=== PATIENT | male | born 1940 ===

== ENCOUNTER 2017-08-08 11:28 | Observation (INO) | payer MEDICARE ==
[2017-08-08] MEDS ORDERED: Iohexol 240 (50 ml) PO STA (12:00)
--- NOTE | 2017-08-08 12:07 | C.PDOC ---
History Of Present Illness 76 y/o male presents to the ED accompanied by his son-in-law, for complaints of nausea and abdominal pain for 3 days. Patient saw his primary doctor and was referred to come to the ED to rule out cholecystitis. He denies any associated vomiting, bloody stools, dysuria, frequency, back pain, fever, or chills. Pain is described as diffuse and constant. Patient denies prior history of similar symptoms. He reports he did travel to [facility] 3 weeks ago and since then has been eating a lot of irish take-out and junk food. PMD: Indra Sierra GI: Dr. Chery Time Seen by Provider: 08/08/17 11:36 Chief Complaint (Nursing): Abdominal Pain History Per: Patient History/Exam Limitations: no limitations Onset/Duration Of Symptoms: Days (x3) Current Symptoms Are (Timing): Still Present Context: Travel, Food Location Of Pain/Discomfort: Diffuse Radiation Of Pain To:: None Recent travel outside of the [place]: Yes ([facility]) Past Medical History Reviewed: Historical Data, Nursing Documentation, Vital Signs Vital Signs: Last Vital Signs Temp 97.5 F L 08/09/17 16:00 Pulse 60 08/09/17 16:00 Resp 20 08/09/17 16:00 BP 123/72 08/09/17 16:00 Pulse Ox 95 08/09/17 16:00 - Medical History PMH: Hypercholesterolemia Surgical History: Appendectomy Other Surgeries: Right wrist surgery Family History: States: No Known Family Hx - Social History Hx Tobacco Use: No Hx Alcohol Use: No Hx Substance Use: No - Immunization History Hx Tetanus Toxoid Vaccination: No Hx Influenza Vaccination: Yes Hx Pneumococcal Vaccination: No Review Of Systems Except As Marked, All Systems Reviewed And Found Negative. Constitutional: Negative for: Fever, Chills Gastrointestinal: Positive for: Nausea, Abdominal Pain. Negative for: Vomiting , Diarrhea, Hematochezia Genitourinary: Negative for: Dysuria, Frequency, Hematuria Musculoskeletal: Negative for: Back Pain Physical Exam - Physical Exam Appears: Well, Non-toxic, No Acute Distress Skin: Normal Color, Warm, Dry, No Rash Head: Atraumatic, Normacephalic Eye(s): bilateral: Normal Inspection, PERRL, EOMI Nose: Normal Oral Mucosa: Moist Neck: Normal ROM Chest: Symmetrical Cardiovascular: Rhythm Regular, No Murmur Respiratory: Normal Breath Sounds, No Rales, No Rhonchi, No Wheezing Gastrointestinal/Abdominal: Soft, Tenderness (mild diffuse tenderness), No Guarding, No Rebound Extremity: Normal ROM, No Swelling Extremity: Bilateral: Atraumatic, Normal Color And Temperature, Normal ROM Neurological/Psych: Oriented x3, Normal Speech Gait: Steady ED Course And Treatment - Laboratory Results Result Diagrams: 08/09/17 07:43 08/09/17 07:43 O2 Sat by Pulse Oximetry: 97 (RA) Pulse Ox Interpretation: Normal - CT Scan/US CT abdomen/pelvis Other Rad Studies (CT/US): Read By Radiologist, Radiology Report Reviewed CT/US Interpretation: Accession No. : [id number]. Patient Name / ID : EDI MCDONNELL / [id number]. Exam Date : 08/08/2017 14:19:39 ( Approved ). Study Comment : Sex / Age : M / 76Y. Creator : Yang Mckeon MD. Dictator : Yang Mckeon MD. Grain Roaster : Warehouse Operations Associate : Yang Mckeon MD. Approver2 : Report Date : 08/08/2017 15:54:59. My Comment : . PROCEDURE: CT Abdomen and Pelvis with contrast. HISTORY: abd pain. COMPARISON: None. TECHNIQUE: Following oral and intravenous contrast administration, a CT examination of the abdomen and pelvis performed from the domes of the diaphragms to the symphysis pubis with reformatted datasets provided not only axial but also sagittal and coronal series. Contrast dose: Visipaque 320, 100 cc. Radiation dose: Total exam DLP = 1142.91 mGy-cm. This CT exam was performed using one or more of the following dose reduction techniques: Automated exposure control, adjustment of the mA and/or kV according to patient size, and/or use of iterative reconstruction technique. FINDINGS: LOWER THORAX: Unremarkable. LIVER: There are few small lucencies scattered at the medial right and left lobes of the liver too small to characterize with remainder of the liver unremarkable. GALLBLADDER AND BILE DUCTS: Unremarkable. PANCREAS: Unremarkable. No gross lesion or ductal dilatation. SPLEEN: Unremarkable. ADRENALS: Unremarkable. No mass. KIDNEYS AND URETERS: Unremarkable. No hydronephrosis. No solid mass. VASCULATURE: Unremarkable. No aortic aneurysm. BOWEL: There is nonspecific dilatation of a large bowel segment at the mid left abdomen with partially collapsed more distal mid small bowel at the left flank/left lower quadrant abdomen. The ileum appears collapsed. The pattern is suspicious for an early mid small bowel obstruction though a developing ileus is not completely excluded. There is mild- to-moderate fecal loading throughout the large bowel which is otherwise grossly unremarkable but limited in evaluation due lack of oral contrast transit into the large bowel. A few cecal diverticular seen without local inflammation. APPENDIX: Not identified. No CT evidence to suggest appendicitis. PERITONEUM: Unremarkable. No free fluid. No free air. LYMPH NODES: Unremarkable. No enlarged lymph nodes. BLADDER: Unremarkable. REPRODUCTIVE: Enlarged prostate gland. BONES: No acute fracture. OTHER FINDINGS: None. IMPRESSION : Findings suspicious for potential developing ileus or mid small bowel obstruction. No measure edema, ascites or free intraperitoneal gas identified this time. Continued clinical and possible radiographic or CT follow-up advised. Multiple small lucencies identified at the liver too small to characterize. Medical Decision Making Medical Decision Making: Time: 12:00 Initial Plan: * CMP * CBC * Lipase * Urinalysis * Toradol 15 mg IVP * Zofran 4 mg IVP * CT Abdomen/Pelvis with PO & IV contrast 15:54 CT read by radiology with findings suspicious for potential developing ileus vs mid SBO. 16:[address] Sierra, CT findings discussed, requests for patient to be admitted to surgery under the service of Dr. Ray 16:[address] Ray, who will consult patient in the ED 17:30 Dr. Ray evaluated the patient and agrees with recommendation to hospitalize patient for observation 17:[address] Sierra, patient will be admitted under her service Disposition Counseled Patient/Family Regarding: Studies Performed, Diagnosis - Disposition Disposition: HOSPITALIZED Disposition Time: 17:39 Condition: STABLE - POA Present On Arrival: None - Clinical Impression Clinical Impression: Small bowel obstruction - PA / BLINTZE ROLLER / Resident Statement MD/DO has reviewed & agrees with the documentation as recorded. - Scribe Statement The provider has reviewed the documentation as recorded by the Scribe (Kendal Iniguez) All medical record entries made by the Scribe were at my direction and personally dictated by me. I have reviewed the chart and agree that the record accurately reflects my personal performance of the history, physical exam, medical decision making, and the department course for this patient. I have also personally directed, reviewed, and agree with the discharge instructions and disposition. Decision To Admit - Pt Status Changed To: Hospital Disposition Of: Observation - . Bed Request Type: Regular Patient Diagnosis: Small bowel obstruction
[2017-08-08] MEDS ORDERED: Iohexol 240 (50 ml) ONE (12:09)
[2017-08-08 12:34] LABS: BASO % 0.4 % (0.0-2.0); EOS # 0.1 K/uL (0.0-0.7); MONO # 0.9 K/uL (0.0-0.8); NEUT # 6.7 K/uL (1.8-7.0); NRBC % 0.1 % (0.0-2.0); RBC 4.64 Mil/uL (4.40-5.90)
[2017-08-08 12:41] LABS: ALBUMIN 3.9 g/dL (3.5-5.0); ALT/SGPT 32 U/L (21-72); AST/SGOT 27 U/L (17-59); BLOOD UREA NITROGEN 19 mg/dL (9-20); CALCIUM 8.5 mg/dl (8.6-10.4); EOS % 1.2 % (0.0-4.0); GFR AFRICAN-AMERICAN > 60; GFR NON-AFRICAN AMERICAN > 60; HEMOGLOBIN 15.1 g/dL (12.0-18.0); LIPASE 19 U/L (23-300); LYMPH # 1.6 K/uL (1.0-4.3); LYMPH % 16.9 % (20.0-40.0); MEAN CELL VOLUME 93.6 fL (80.0-94.0); MEAN CORPUSCULAR HEMOGLOBIN 32.5 pg (27.0-31.0); MEAN CORPUSCULAR HGB CONC 34.7 g/dL (33.0-37.0); MEAN PLATELET VOLUME 11.1 fL (7.2-11.7); MONO % 9.6 % (0.0-10.0); NEUT % 71.9 % (50.0-75.0); RED CELL DISTRIBUTION WIDTH 13.8 % (11.5-14.5); WHITE BLOOD COUNT 9.4 K/uL (4.8-10.8)
[2017-08-08 12:54] LABS: URINE BILIRUBIN NEGATIVE (NEGATIVE); URINE BLOOD NEGATIVE (NEGATIVE); URINE CLARITY Clear (Clear); URINE COLOR Yellow (YELLOW); URINE GLUCOSE (UA) NORMAL (Normal); URINE LEUKOCYTE ESTERASE NEG Leu/uL (Negative); URINE PROTEIN NEGATIVE (NEGATIVE); URINE UROBILINOGEN NORMAL mg/dL (0.2-1.0)
[2017-08-08] MEDS ORDERED: Iodixanol 320 MG/ML 100 ML BOTTLE IV ONE (14:15)
--- NOTE | 2017-08-08 15:56 | CT ---
PROCEDURE: CT Abdomen and Pelvis with contrast HISTORY: abd pain COMPARISON: None. TECHNIQUE: Following oral and intravenous contrast administration, a CT examination of the abdomen and pelvis performed from the domes of the diaphragms to the symphysis pubis with reformatted datasets provided not only axial but also sagittal and coronal series. Contrast dose: Visipaque 320, 100 cc Radiation dose: Total exam DLP = 1142.91 mGy-cm. This CT exam was performed using one or more of the following dose reduction techniques: Automated exposure control, adjustment of the mA and/or kV according to patient size, and/or use of iterative reconstruction technique. FINDINGS: LOWER THORAX: Unremarkable. LIVER: There are few small lucencies scattered at the medial right and left lobes of the liver too small to characterize with remainder of the liver unremarkable. GALLBLADDER AND BILE DUCTS: Unremarkable. PANCREAS: Unremarkable. No gross lesion or ductal dilatation. SPLEEN: Unremarkable. ADRENALS: Unremarkable. No mass. KIDNEYS AND URETERS: Unremarkable. No hydronephrosis. No solid mass. VASCULATURE: Unremarkable. No aortic aneurysm. BOWEL: There is nonspecific dilatation of a large bowel segment at the mid left abdomen with partially collapsed more distal mid small bowel at the left flank/left lower quadrant abdomen. The ileum appears collapsed. The pattern is suspicious for an early mid small bowel obstruction though a developing ileus is not completely excluded. There is [id number] fecal loading throughout the large bowel which is otherwise grossly unremarkable but limited in evaluation due lack of oral contrast transit into the large bowel. A few cecal diverticular seen without local inflammation. APPENDIX: Not identified. No CT evidence to suggest appendicitis. PERITONEUM: Unremarkable. No free fluid. No free air. LYMPH NODES: Unremarkable. No enlarged lymph nodes. BLADDER: Unremarkable. REPRODUCTIVE: Enlarged prostate gland. BONES: No acute fracture. OTHER FINDINGS: None. IMPRESSION: Findings suspicious for potential developing ileus or mid small bowel obstruction. No measure edema, ascites or free intraperitoneal gas identified this time. Continued clinical and possible radiographic or CT follow-up advised. Multiple small lucencies identified at the liver too small to characterize.
--- NOTE | 2017-08-08 18:33 | CP.PCM.CON ---
History of Present Illness - History of Present Illness History of Present Illness: General Surgery consult for Dr. Ray Consulted for: SBO vs ileus Patient is a 76M with past surgical history of appendectomy 45 years ago who presents to ER from Dr. Sierra's office for diffuse abdominal pain for 3 days. patient states that he pain is everywhere and associated with nausea and wretching but no vomiting. patient states his last bowel movement was 2 days ago and was soft, non-bloody. Patient states his is passing gas occasionally today. Patient denies any recent similar episodes or sick contacts. Patient recently returned from trip to [facility] and has been treating a cold with a lot of soups and [place] food. PMH: HLD PSH: appendectomy ALL; NKDA Review of Systems - Review of Systems All systems: reviewed and no additional remarkable complaints except (as per HPI ) Past Patient History - Infectious Disease Hx of Infectious Diseases: None - Past Medical History & Family History Past Medical History?: Yes Past Family History: Reviewed and not pertinent - Past Social History Smoking Status: Never Smoked Alcohol: Other (former ETOH) Drugs: Denies - CARDIAC Hx Hypercholesterolemia: Yes - PSYCHIATRIC Hx Substance Use: No - SURGICAL HISTORY Hx Appendectomy: Yes - ANESTHESIA Hx Anesthesia: Yes Hx Anesthesia Reactions: No Hx Malignant Hyperthermia: No Meds Allergies/Adverse Reactions: Allergies Allergy/AdvReac Type Severity Reaction Status Date / Time No Known Allergies Allergy Verified 08/08/17 11:45 - Medications Medications: Current Medications Ondansetron HCl (Zofran Inj) 4 mg IVP Q6H PRN PRN Reason: Nausea/Vomiting Physical Exam - Constitutional Appears: Well, Non-toxic, No Acute Distress - Head Exam Head Exam: ATRAUMATIC, NORMOCEPHALIC - Eye Exam Eye Exam: Normal appearance. absent: Conjunctival injection, Scleral icterus - ENT Exam ENT Exam: Mucous Membranes Moist, Normal Oropharynx - Respiratory Exam Respiratory Exam: NORMAL BREATHING PATTERN. absent: Accessory Muscle Use, Respiratory Distress - Cardiovascular Exam Cardiovascular Exam: RRR - GI/Abdominal Exam GI & Abdominal Exam: Distended (mild distension), Normal Bowel Sounds, Soft, Tenderness (diffuse mild ttp). absent: Guarding, Rebound - Extremities Exam Extremities exam: Positive for: pedal pulses present. Negative for: calf tenderness, pedal edema - Neurological Exam Neurological exam: Alert, Oriented x3 - Psychiatric Exam Psychiatric exam: Normal Affect, Normal Mood - Skin Skin Exam: Dry, Intact, Normal Color, Warm Results - Vital Signs Recent Vital Signs: Last Vital Signs Temp 98.6 F 08/08/17 17:08 Pulse 59 L 08/08/17 17:08 Resp 18 08/08/17 17:08 BP 129/77 08/08/17 17:08 Pulse Ox 97 08/08/17 17:47 - Labs Result Diagrams: 08/08/17 12:17 08/08/17 12:17 Labs: Laboratory Results - last 24 hr 08/08/17 08/08/17 08/08/17 12:17 12:17 12:17 WBC 9.4 RBC 4.64 Hgb 15.1 Hct 43.5 MCV 93.6 MCH 32.5 H MCHC 34.7 RDW 13.8 Plt Count 119 L MPV 11.1 Neut % (Auto) 71.9 Lymph % (Auto) 16.9 L Mcminn % (Auto) 9.6 Eos % (Auto) 1.2 Baso % (Auto) 0.4 Neut # (Auto) 6.7 Lymph # (Auto) 1.6 Mcminn # (Auto) 0.9 H Eos # (Auto) 0.1 Baso # (Auto) 0.0 Differential Comment Sodium 140 Potassium 4.2 Chloride 103 Carbon Dioxide 24 Anion Gap 17 BUN 19 Creatinine 0.8 Est GFR ( Amer) > 60 Est GFR (Non-Af Amer) > 60 Random Glucose 100 Calcium 8.5 L Total Bilirubin 1.2 AST 27 ALT 32 Alkaline Phosphatase 92 Total Protein 7.7 Albumin 3.9 Globulin 3.8 Albumin/Globulin Ratio 1.0 Lipase 19 L Urine Color Yellow Urine Clarity Clear Urine pH 5.0 Ur Specific [place] 1.020 Urine Protein Negative Urine Glucose (UA) Normal Urine Ketones Negative Urine Blood Negative Urine Nitrate Negative Urine Bilirubin Negative Urine Urobilinogen Normal Ur Leukocyte Esterase Neg Urine WBC (Auto) < 1 Urine RBC (Auto) 1 - Imaging and Cardiology CT scan - abdomen Status: Image reviewed by me, Report reviewed by me CT scan - pelvis Status: Image reviewed by me, Report reviewed by me Assessment & Plan - Assessment and Plan (Free Text) Assessment: 76M with abdominal pain, ileus vs SBO CT: possible early SBO vs ileus with mild dilation of mid small bowel--contrast reaches into the cecum Plan: -NPO -IVF -Monitor for nausea and vomiting. If patient deteriorates may insert a NGT -PRN pain and nausea medication -Monitor strict intake and output--monitor for bowel function -Further surgical planning pending clinical course--may only need conservative therapy -Monitor CBC and BMP, Mag, phos, and replete electrolytes as needed Discussed with Dr. Flor Kumar, PGY2
[2017-08-08] MEDS ORDERED: Tramadol 25 mg PO PRN (18:51)
[2017-08-08] MEDS: Lactated Ringer's 1,000 ML IV SCH (19:12)
[2017-08-08] MEDS ORDERED: Lactated Ringer's 1,000 ML ONE (19:12)
[2017-08-08] MEDS ORDERED: Simethicone 80 mg Chewtab PO STA (19:32)
[2017-08-09 07:54] LABS: BASO % 0.5 % (0.0-2.0); EOS # 0.2 K/uL (0.0-0.7); EOS % 2.6 % (0.0-4.0); HEMOGLOBIN 14.1 g/dL (12.0-18.0); LYMPH # 1.9 K/uL (1.0-4.3); LYMPH % 31.2 % (20.0-40.0); MEAN CELL VOLUME 92.6 fL (80.0-94.0); MEAN CORPUSCULAR HEMOGLOBIN 32.6 pg (27.0-31.0); MEAN CORPUSCULAR HGB CONC 35.2 g/dL (33.0-37.0); MEAN PLATELET VOLUME 10.5 fL (7.2-11.7); MONO # 0.5 K/uL (0.0-0.8); MONO % 8.5 % (0.0-10.0); NEUT # 3.4 K/uL (1.8-7.0); NEUT % 57.2 % (50.0-75.0); NRBC % 0.1 % (0.0-2.0); RBC 4.34 Mil/uL (4.40-5.90); RED CELL DISTRIBUTION WIDTH 13.9 % (11.5-14.5)
[2017-08-09] MEDS: Lactated Ringer's 1,000 ML IV SCH (08:03)
[2017-08-09 08:06] LABS: BLOOD UREA NITROGEN 20 mg/dL (9-20); CALCIUM 8.6 mg/dl (8.6-10.4); GFR AFRICAN-AMERICAN > 60; GFR NON-AFRICAN AMERICAN > 60
--- NOTE | 2017-08-09 09:22 | CP.PCM.PN ---
Subjective - Date & Time of Evaluation Date of Evaluation: 08/09/17 Time of Evaluation: 09:19 - Subjective Subjective: Surgery: Dr. Ray Pt seen and examined. No acute events overnight. Pt states he feels a lot better this morning, his abdominal pain has resolved and he admits to flatus. Denies BM. Denies N/V, F/C. Objective - Vital Signs/Intake and Output Vital Signs (last 24 hours): Temp Pulse Resp BP Pulse Ox 98.2 F 63 20 111/58 L 96 08/09/17 00:00 08/09/17 00:00 08/09/17 00:00 08/09/17 00:00 08/09/17 08:45 - Medications Medications: Current Medications Acetaminophen (Tylenol 325mg Tab) 650 mg PO Q6 PRN PRN Reason: Pain, moderate (4-7) Lactated Ringer's (Lactated Ringer's) 1,000 mls @ 150 mls/hr IV .Q6H40M GORGE Last Admin: 08/09/17 08:03 Dose: 150 mls/hr Ondansetron HCl (Zofran Inj) 4 mg IVP Q6H PRN PRN Reason: Nausea/Vomiting Tramadol HCl (Ultram) 25 mg PO TID PRN PRN Reason: Pain, severe (8-10) - Labs Labs: 08/09/17 07:43 08/09/17 07:43 - Constitutional Appears: Well, No Acute Distress - Head Exam Head Exam: ATRAUMATIC, NORMOCEPHALIC - Eye Exam Eye Exam: Normal appearance - ENT Exam ENT Exam: Mucous Membranes Moist - Respiratory Exam Respiratory Exam: NORMAL BREATHING PATTERN - Cardiovascular Exam Cardiovascular Exam: RRR - GI/Abdominal Exam GI & Abdominal Exam: Soft. absent: Distended, Tenderness - Neurological Exam Neurological Exam: Alert, Awake, Oriented x3 - Skin Skin Exam: Dry, Warm Assessment and Plan - Assessment and Plan (Free Text) Assessment: 77M admitted for partial SBO vs ileus Plan: - start CLD and monitor bowel function - will advance diet as tolerated - d/w Dr. Flor Moise, PGY-3
--- NOTE | 2017-08-09 10:55 | RAD ---
HISTORY: R/O OBSTRUCTION COMPARISON: Correlation made to CT scan of the abdomen pelvis performed 08/08/2017 FINDINGS: BOWEL: Retained oral contrast from recent CT scan is seen in the rectum. No obstruction. BONES: Degenerative changes. OTHER FINDINGS: None. IMPRESSION: No obstruction.
[2017-08-09 12:46] VITALS: TEMP 97.5
[2017-08-09 16:18] VITALS: BP 123/72; PULSE 60; RESP 20
--- NOTE | 2017-08-10 16:33 | CP.PCM.HP ---
Past Patient History - Infectious Disease Hx of Infectious Diseases: None - Past Medical History & Family History Past Medical History?: Yes Past Family History: Reviewed and not pertinent - Past Social History Smoking Status: Never Smoked Alcohol: Other (former ETOH) Drugs: Denies - CARDIAC Hx Hypercholesterolemia: Yes - PSYCHIATRIC Hx Substance Use: No - SURGICAL HISTORY Hx Appendectomy: Yes - ANESTHESIA Hx Anesthesia: Yes Hx Anesthesia Reactions: No Hx Malignant Hyperthermia: No Meds Allergies/Adverse Reactions: Allergies Allergy/AdvReac Type Severity Reaction Status Date / Time No Known Allergies Allergy Verified 08/08/17 11:45 Results - Vital Signs Recent Vital Signs: Last Vital Signs Temp 97.5 F L 08/09/17 16:00 Pulse 60 08/09/17 16:00 Resp 20 08/09/17 16:00 BP 123/72 08/09/17 16:00 Pulse Ox 95 08/09/17 16:00 - Labs Result Diagrams: 08/09/17 07:43 08/09/17 07:43
[2017-08-12 17:41] VITALS: O2SAT 97
== END 2017-08-09 17:42 | disposition home or self-care (01) ==
LOC: C.ER 11:28 → C.9E 17:40 → C.3T 19:21
PROVIDERS: ADMIT Internal Medicine; ATTEND Internal Medicine
DX: R10.9 Unspecified abdominal pain (principal); E78.00 Pure hypercholesterolemia, unspecified
CPT/HCPCS: 36415; 74018; 74177; 80048; 80053; 81001; 83690; 83735; 84100; 85025; 96374; 96375; 99285; G0378; J1885; J2405; J7120; Q9966; Q9967